=== PATIENT | male | born 1990 | race Caucasian/White ===

== ENCOUNTER 2017-01-06 15:54 | Emergency (ER) | payer OTHER ==
[2017-01-06 16:06] VITALS: TEMP 97.9
--- NOTE | 2017-01-06 17:41 | EDPHY ---
H & P Smoking Status: Former smoker Time Seen by Provider: 01/06/17 17:08 HPI/ROS: CHIEF COMPLAINT: Anxiety, tremulous HISTORY OF PRESENT ILLNESS: 26-year-old male presents to the emergency department by private vehicle with his father feeling anxious and tremulous. The patient states 2 months ago he was at a concert and did acid and cocaine and other drugs. The patient states that he has felt extremely anxious since that time. Patient states now it is to the point where he is unable to function. He is not sleeping well. He is not eating. He is unable to perform his job. He denies suicidal or homicidal ideation. He denies chest pain or difficulty breathing. Denies abdominal pain. The patient states that when his dad picked him up today his dad noticed that he was tremulous. Patient states that he has had a left-sided headache and is having "tremors "where his head is moving involuntarily. The father thinks that this is associated with anxiety however he has never seen him like this before. Denies neck or back pain. REVIEW OF SYSTEMS: Constitutional: No fever, no chills. Eyes: No double or blurry vision. ENT: No sore throat. Respiratory: No cough, no shortness of breath. Cardiac: No chest pain. Gastrointestinal: No abdominal pain, vomiting or diarrhea. Genitourinary: No dysuria. Musculoskeletal: No neck or back pain. Skin: No rashes. Neurological: No headache. (Soumya Iverson) Past Medical/Surgical History: Anxiety (Soumya Iverson) Social History: Single (Soumya Iverson) Physical Exam: General Appearance: Alert, no distress. Father at bedside. No tremors noted. Eyes: Pupils equal and round. Extraocular motions are all intact. ENT: Mouth: Mucous membranes moist. Respiratory: No wheezing, rhonchi, or rales, lungs are clear to auscultation. Cardiovascular: Regular rate and rhythm. Gastrointestinal: Abdomen is soft and nontender, no masses, no rebound or guarding, bowel sounds normal. Neurological: Alert and oriented x 3, cranial nerves II through XII grossly intact Skin: Warm and dry, no rashes. Musculoskeletal: Nontender to palpate along the cervical, thoracic or lumbar spine. Neck is supple. Extremities: Full range of motion and no peripheral edema. Psychiatric: Patient is oriented X 3, there is no agitation. (Soumya Iverson) Constitutional: Initial Vital Signs Temperature (C) 36.6 C 01/06/17 16:00 Heart Rate 71 01/06/17 16:00 Respiratory Rate 18 01/06/17 16:00 Blood Pressure 114/83 H 01/06/17 16:00 O2 Sat (%) 97 01/06/17 16:00 O2 Delivery Mode Room Air Allergies/Adverse Reactions: ceftriaxone Allergy (Unknown, Verified 01/06/17 15:59) Home Medications: Medication Instructions Recorded No Home Medications Unk 12/31/11 LORazepam [Ativan] 1 mg PO Q6-8PRN PRN #10 tab 01/06/17 Medical Decision Making ED Course/Re-evaluation: 26-year-old male presents to the emergency department with symptoms of anxiety. The patient does have a left-sided headache and he is not someone who normally gets headache. He denies any reported trauma. The father also notes tremors with his head. I discussed the pros and cons of CT imaging of his brain and the patient in the father requests CT scan. I did explain that this could be associated with his symptoms of anxiety. Laboratory studies have been ordered. When the patient is medically cleared, he will be evaluated by mental health. CT imaging of the brain is normal. Laboratory studies are unremarkable. The patient was evaluated by mental health and was discharged home with his father. He was given intensive outpatient resources Patient is not suicidal or homicidal. (Soumya Iverson) Differential Diagnosis: Depression including functional and major depression, situational depression, medication side effect, drugs and alcohol abuse. (Soumya Iverson) Other Provider: The patient was evaluated and managed by the Physician Crook Operator/ Nurse Practitioner. My co-signature indicates that I have reviewed this chart and I agree with the findings and plan of care as documented. I am the secondary supervising physician. (Angie Stephens) - Data Points Laboratory Results: Laboratory Results 01/06/17 18:23 01/06/17 18:23 Departure - Departure Disposition: Home, Routine, Self-Care Clinical Impression: Anxiety Condition: Good Instructions: Anxiety (ED) Additional Instructions: Ativan as needed for symptoms of anxiety. Follow-up for mental health instructions. Return to the emergency department if you develop any suicidal or homicidal thoughts or any other concerns. Referrals: [facility] [Clinic] - As per Instructions Prescriptions: LORazepam [Ativan] 1 mg PO Q6-8PRN PRN #10 tab PRN Reason: Anxiety
[2017-01-06 18:33] LABS: % IMMATURE GRANULYOCYTES 0.3 % (0.0-1.1); ABSOLUTE IMMATURE GRANULOCYTES 0.02 10^3/uL (0.00-0.10); ADD DIFF? NO; ADD MORPH? NO; ADD SCAN? NO; ATYPICAL LYMPHOCYTE FLAG 0 (0-99); FRAGMENT RBC FLAG 0 (0-99); HEMATOCRIT 43.7 % (40.0-51.0); HEMOGLOBIN 16.4 g/dL (13.7-17.5); LEFT SHIFT FLG 0 (0-99); MEAN CELL HEMOGLOBIN 33.7 pg (27.9-34.1); MEAN CELL HEMOGLOBIN CONCENTR. 37.5 g/dL (32.4-36.7); MEAN CELL VOLUME 89.9 fL (81.5-99.8); MEAN PLATELET VOLUME 8.6 fL (8.7-11.7); PLATELET CLUMPS FLAG 10 (0-99); PLATELET COUNT 217 10^3/uL (150-400); RED BLOOD CELL COUNT 4.86 10^6/uL (4.40-6.38); RED CELL DISTRIBUTION WIDTH 11.8 % (11.5-15.2)
[2017-01-06 18:34] LABS: LIPEMIA HEMOLYSIS FLAG 100 (0-99)
[2017-01-06 18:46] LABS: ANION GAP 12 mEq/L (8-16); CALCIUM 9.2 mg/dL (8.5-10.4); CARBON DIOXIDE 25 mEq/l (22-31); CHLORIDE 101 mEq/L (97-110); CREATININE 0.9 mg/dL (0.7-1.3); GLOMERULAR FILTRATION RATE > 60; GLUCOSE 100 mg/dL (70-100); POTASSIUM 3.9 mEq/L (3.5-5.2); SODIUM 138 mEq/L (134-144)
[2017-01-06 19:21] VITALS: RESP 16
[2017-01-06] MEDS ORDERED: LORazepam 1 MG TAB PO ONE (20:16)
[2017-01-06 21:20] VITALS: BP 121/74; PULSE 66; O2SAT 96
== END 2017-01-06 21:21 | disposition home or self-care (01) ==
DX: F41.9 Anxiety disorder, unspecified (principal); Z87.891 Personal history of nicotine dependence
CPT/HCPCS: 80305